=== PATIENT | male | born 1945 | race Caucasian/White ===

== ENCOUNTER → 2018-05-02 | Outpatient (REF) | payer OTHER ==
[2018-05-02 13:48] LABS: APPEARANCE, URINE MANUAL CLEAR (CLEAR); COLOR, URINE MANUAL YELLOW (YELLOW)
[2018-05-02 13:49] LABS: BILIRUBIN, URINE MANUAL NEGATIVE (NEGATIVE); BLOOD URINE MANUAL NEGATIVE (NEGATIVE); GLUCOSE, URINE (UA) MANUAL NEGATIVE (NEGATIVE); KETONE, URINE MANUAL NEGATIVE (NEGATIVE); LEUKOCYTE ESTERASE, URINE MAN POSITIVE (NEGATIVE); NITRITE, URINE MANUAL NEGATIVE (NEGATIVE); PROTEIN, URINE MANUAL NEGATIVE (NEGATIVE); UROBILINOGEN, URINE MANUAL NORMAL (NORMAL)
[2018-05-02 13:58] LABS: BACTERIA, URINE MOD AMOUNT; HYALINE CAST, URINE NONE SEEN /lpf (0-1); RBC, URINE NONE SEEN /hpf (0-3); SQUAMOUS EPITHELIAL CELL URINE NONE SEEN /hpf (SMALL AMT)
== END ==
LOC: M SMT 12:54
PROVIDERS: ATTEND Nurse Practitioner Family
DX: R35.0 Frequency of micturition (principal); R97.20 Elevated prostate specific antigen [PSA]; R31.0 Gross hematuria
CPT/HCPCS: 36415; 51798; 80048; 81000; 84154; 87088; 87186; 88108; G0463

== ENCOUNTER → 2018-05-02 | Outpatient (CLI) | payer OTHER ==
[2018-05-02 12:01] LABS: BLOOD UREA NITROGEN 22 MG/DL (7-18); CALCIUM LEVEL 8.9 MG/DL (8.8-10.2); CARBON DIOXIDE LEVEL 29 MEQ/L (21-32); CHLORIDE LEVEL 108 MEQ/L (98-107); CREATININE FOR GFR 1.23 MG/DL (0.70-1.30); GLOMERULAR FILTRATION RATE > 60.0 (>42); GLUCOSE, FASTING 123 MG/DL (70-100); POTASSIUM SERUM 4.7 MEQ/L (3.5-5.1); SODIUM LEVEL 142 MEQ/L (136-145)
== END ==
LOC: M SMT 10:09
PROVIDERS: ATTEND Nurse Practitioner Family
DX: R97.20 Elevated prostate specific antigen [PSA] (principal); R31.0 Gross hematuria

== ENCOUNTER → 2019-12-03 | Outpatient (CLI) | payer OTHER ==
--- NOTE | 2019-12-04 10:04 | ECWPNPC ---
PATIENT NAME: RICCO STACY : 1945 GENDER: MALE VISIT DATE: 12/03/2019 DISCHARGE DATE: 12/03/19 0944 VISIT LOCKED DATE TIME: PHYSICIAN: CLIFF BARNES RESOURCE: CLIFF BARNES REASON FOR APPOINTMENT 1. LOW BACK/LEFT KNEE- WILL ACCOMPANY SHE WILLL HAVE TO ANSWER QUESTIONS FOR HIM. HISTORY OF PRESENT ILLNESS DEPRESSION SCREENING: PHQ-2 (2015 EDITION) LITTLE INTEREST OR PLEASURE IN DOING THINGS?NOT AT ALL FEELING DOWN, DEPRESSED, OR HOPELESS?NOT AT ALL TOTAL SCORE0 74-YEAR-OLD MALE IN FOR INITIAL PAIN CONSULT. PATIENT HAS PAIN LOCATED IN HIS LOW BACK AND LEFT KNEE. WHEN ASKED PATIENT ADMITS THAT HE FEELS HIS LOW BACK PAIN IS RELATED TO HIM COMPNESATING FOR HIS LEFT KNEE. PATIENT HAS HAD LEFT KNEE PAIN SINCE 1965 WHEN HE WAS IN THE AND INJURED HIS KNEE THERE. IN 1966 PATIENT HAD SURGERY ON THE LEFT KNEE AND PAIN HAS CONTINUED SINCE THAT TIME. HE WAS RECEIVING CORTISONE INJECTIONS IN HIS KNEE HOWEVER ORTHOPEDICS REFERRED HIM TO US THEY ARE NOT ACCEPTING HIS INSURANCE ANYMORE. HE RATES HIS PAIN CURRENTLY AT A 9 OUT OF 10 AND DESCRIBES IT ACHING AND TENDER. GENERAL: - - -. FALL RISK SCREENING: SCREENING :NO FALLS REPORTED IN THE LAST YEAR PAIN SCREENING: PATIENT HAS A COMPLAINT OF ACUTE OR CHRONIC PAIN :YES LOCATION OF PAIN:LOW BACK, KNEES LEFT KNEE INTENSITY OF PAIN (SCALE OF 1 TO 10):9 WHAT DOES YOUR PAIN FEEL LIKE:ACHING, TENDER DURATION:CONSTANT, AWAKENS FROM SLEEP THE PAIN KEEPS THE PATIENT AWAKE A LOT. PAIN IS INCREASED BY:ACTIVITIES, PROLONGED STANDING PAIN IS DECREASED BY:OTHERS PATIENT USES ICE AND A BIOWAVE MACHINE THAT TAKES THE EDGE OFF THE PAIN. NURSING NOTE: - - -. PAIN CENTER INTAKE QUESTIONS: DO YOU HAVE A HISTORY OF MRSA? :NO DO YOU TAKE A BLOOD THINNERS? :NO DO YOU HAVE ANY BLEEDING DISORDERS? :YES WHEN A TOOTH IS PULLED, SUTURES NEED TO BE PLACED TO STOP THE BLEEDING. ANY NEW NUMBNESS OR WEAKNESS IN YOUR LEGS OR ARMS? :YES BILAT LEG WEAKNESS AND PAIN ANY PACEMAKER,DEFIBRILLATOR, OR DORSAL COLUMN STIMULATOR? :NO DO YOU HAVE ANY RASHES OR OPEN SORES? :NO ARE YOU ALLERGIC TO IV DYE? :NO ARE YOU DIABETIC? :NO ANY NEW PROBLEMS WITH YOUR MEDICATIONS? :NO HAVE YOU RECEIVED A VACCINE IN THE PAST 30 DAYS? :YES IF SO WHAT VACCINE AND WHEN? FLU VACCINE 3 WEEKS AGO DO YOU PLAN TO RECEIVE A VACCINE IN THE NEXT 21 DAYS? :NO DO YOU NEED ANY PRESCRIPTION? :NO DO YOU TAKE ANY IMMUNOSUPPRESSIVE MEDICATIONS? :NO IS THERE A CHANCE YOU COULD BE ? :NO ARE YOU BREAST FEEDING? :NO CURRENT MEDICATIONS TAKING DICLOFENAC SODIUM 75 MG TABLET DELAYED RELEASE 1 TABLET WITH FOOD OR MILK ORALLY BID TAKING ACETAMINOPHEN 500 MG CAPSULE 1 CAPSULE NEEDED ORALLY EVERY 6 HRS TAKING ROSUVASTATIN CALCIUM 40 MG TABLET 1 TABLET ORALLY ONCE A DAY TAKING METOPROLOL SUCCINATE 50 MG CAPSULE ER 24 HOUR SPRINKLE 1 CAPSULE ORALLY BID TAKING TAMSULOSIN HCL 0.4 MG CAPSULE 1 CAPSULE ORALLY ONCE A DAY TAKING LOSARTAN POTASSIUM 25 MG TABLET 1 TABLET ORALLY ONCE A DAY NOT-TAKING METOPROLOL TARTRATE 50 MG TABLET 1 TABLET WITH FOOD ORALLY TWICE A DAY NOT-TAKING CRESTOR 40 MG TABLET 1 TABLET ORALLY ONCE A DAY NOT-TAKING CIPROFLOXACIN HCL 500 MG TABLET 1 TABLET ORALLY EVERY 12 HRS NOT-TAKING FLOMAX 0.4 MG CAPSULE 1 CAPSULE ORALLY ONCE A DAY NOT-TAKING RAMIPRIL 10 MG TABLET ORALLY DAILY MEDICATION LIST REVIEWED AND RECONCILED WITH THE PATIENT PAST MEDICAL HISTORY HTN HYPERLIPIDEMIA ELEVATED PSA URINARY FREQUENCY NOCTURIA ALLERGIES PENICILLIN (FOR ALLERGIES USE ONLY): UNSURE - ALLERGY SURGICAL HISTORY LEFT KNEE 1966 FAMILY HISTORY FATHER: MOTHER: , HTN, EMPHYSEMA, COPD 1 SON(S) , 1 DAUGHTER(S) - HEALTHY. DENIES FAMILY HISTORY OF UROLOGICAL DX. SOCIAL HISTORY GENERAL: TOBACCO USE ARE YOU A:FORMER SMOKER SMOKED 2 PPD STARTED SMOKING 13YRS OLD AND QUIT 1980S. HOW LONG HAS IT BEEN SINCE YOU LAST SMOKED?> 10 YEARS LATEX QUESTIONNAIRE LATEX ALLERGY : HAVE YOU EVER DEVELOPED ANY TYPE OF REACTION AFTER HANDLING LATEX PRODUCTS SUCH RUBBER GLOVES, CONDOMS, DIAPHRAGMS, BALLOONS, SOCKS, OR UNDERWEAR?NO LATEX ALLERGY : HAVE YOU EVER DEVELOPED ANY TYPE OF REACTION DURING OR AFTER DENTAL APPOINTMENT, VAGINAL/RECTAL EXAMINATION, SURGICAL PROCEDURE, OR ANY OTHER EXPOSURE?NO LATEX RISK : HAVE YOU EVER HAD ANY DIFFICULTY BREATHING OR HIVES AFTER EATING OR HANDLING ANY FRUITS, OR VEGETABLES; SUCH KIWI, BANANAS, STONE FRUITS, OR CHESTNUTSNO LATEX RISK : DO YOU HAVE A PREVIOUS PERSONAL HISTORY OF MORE THAN NINE SURGERIES, SPINA BIFIDA, OR REPEATED CATHERIZATIONS? NO LATEX RISK : ARE YOU FREQUENTLY EXPOSED TO LATEX PRODUCTS IN YOUR OCCUPATION?NO DATE ASKED : 12/03/2019 ALCOHOL SCREENING DID YOU HAVE A DRINK CONTAINING ALCOHOL IN THE PAST YEAR?YES HOW OFTEN DID YOU HAVE A DRINK CONTAINING ALCOHOL IN THE PAST YEAR?MONTHLY OR LESS (1 POINT) HOW MANY DRINKS DID YOU HAVE ON A TYPICAL DAY WHEN YOU WERE DRINKING IN THE PAST YEAR?1 OR 2 (0 POINTS) HOW OFTEN DID YOU HAVE SIX OR MORE DRINKS ON ONE OCCASION IN THE PAST YEAR?NEVER (0 POINTS) POINTS1 INTERPRETATIONNEGATIVE RECREATIONAL DRUG USE DRUG USE?NO CAFFEINE CAFFEINE USE?YES COFFEE = 1 CUP PER DAY SODA = OCCASIONAL SEXUAL HX HAD SEX IN THE LAST 12 MONTHS (VAGINAL, ORAL, OR ANAL)?NO HAVE YOU EVER HAD AN STD?NO ALEVISM [id number] PROTESTANT NO YAZDANISM BELIEFS THAT WOULD IMPACT HEALTH CARE. LANGUAGE LANGUAGES SPOKEN:ROMANSH EDUCATION LEVEL OF EDUCATION: 10TH GRADE LEARNING BARRIERS / SPECIAL NEEDS BARRIERS TO LEARNING?NO HEARING IMPAIRED?NO VISION IMPAIRED?YES :CORRECTIVE LENSES READINESS TO LEARN?YES LEARNING PREFERENCES?NO DOMESTIC VIOLENCE DO YOU FEEL SAFE IN YOUR ENVIRONMENT?YES MARITAL STATUS: . PAIN CLINIC PFS, CLERGY, PUBLIC HEALTH REFERRALS HAS THE PATIENT BEEN EDUCATED REGARDING HIS/HER PLAN OF CARE?YES HAS THE PATIENT BEEN EDUCATED REGARDING PAIN, THE RISK FOR PAIN, THE IMPORTANCE OF EFFECTIVE PAIN MANAGEMENT, AND THE PAIN ASSESSMENT PROCESS?YES ADVANCE DIRECTIVE ADVANCE DIRECTIVE DISCUSSED WITH PATIENT:YES DECLINED PRE-SCREENING CALL DONE 04/22/19 EM. HOSPITALIZATION/MAJOR DIAGNOSTIC PROCEDURE SX RELATED CHEST PAINS 1987 REVIEW OF SYSTEMS CONSTITUTIONAL: ANY RECENT FEVER NO . CHILLS NO . WEIGHT CHANGE OF UNKNOWN REASONS NO . MUSCULOSKELETAL: ANY UNUSUAL JOINT PAIN OR SWELLING NOT MENTIONED NO . SYSTEMIC LUPUS NO . ANY NEUROMUSCULAR DISORDER NOT MENTIONED NO . LYME DISEASE NO . GASTROENTEROLOGY: ANY NEW CHANGE IN BOWEL CONTROL? NO . HISTORY OF LIVER DISORDER NOT MENTIONED NO . HISTORY OF UNUSUAL ABDOMINAL PAIN OR CRAMPING NOT MENTIONED NO . NO CONSTIPATION. GENITOURINARY: ANY NEW CHANGE IN BLADDER CONTROL? NO . ANY RENAL/KIDNEY CONDITON NOT MENTIONED NO . NEUROLOGY: HISTORY OF TBI NOT MENTIONED NO . OTHER NEW NUMBNESS OR PAIN PATTERNS NOT MENTIONED NO . NEW ONSET DIZZINESS OR NEUROLOGICAL CHANGES NOT MENTIONED NO . HISTORY OF SEVERE HEADACHES NOT MENTIONED NO . HISTORY OF STROKE OR NEUROLOGICAL DISORDER NOT MENTIONED NO . CARDIOLOGY: HEART SURGERY NO . CONGESTIVE HEART FAILURE/FLUID OVERLOAD NOT MENTIONED NO . HISTORY OF CHEST PAIN,IRREGULAR HEART BEAT NOT MENTIONED NO . RESPIRATORY: SHORTNESS OF BREATH ON EXERTION, WHEEZES, UNUSUAL COUGH NOT MENTIONED NO . ENDOCRINOLOGY: ADRENAL GLAND OR THYROID DISORDERS NOT MENTIONED NO . UNUSUAL URINATION, DIZZINESS OR LETHARGY NOT MENTIONED NO . VITAL SIGNS WT 215.8 LBS, HT 70 IN, BMI 30.96 INDEX, BP 161/72 MM HG, HR 41 /MIN, RR 12 /MIN, TEMP 99.0 F, OXYGEN SAT % 99, REVIEWED BY: HOANG GREY [facility]. EXAMINATION GENERAL EXAMINATION: GENERALNO ACUTE DISTRESS, WELL NOURISHED AND HYDRATED. PSYCHAPPROPRIATE MOOD AND AFFECT . LUNGS:CLEAR TO AUSCULTATION BILATERALLY, NO WHEEZES, RHONCHI, RALES. HEART:NO MURMURS, REGULAR RATE AND RHYTHM. BACK:DENIES POINT TENDERNESS ALONG LUMBAR SPINE, SURROUNDING SKIN SHOWS NO ERYTHEMA, ECCHYMOSIS, INCREASED WARMTH, AND/OR SKIN ERUPTIONS NOTED. POSITIVE MODIFIED SLR ON THE LEFT SIDE. . MUSCULOSKELETAL:NOTABLE WEAKNESS OF THE LEFT LOWER EXTREMITY, RIGHT LOWER EXTREMITY WITHIN NORMAL LIMITS. PATIENT ENDORSES TENDERNESS TO THE MEDIAL ASPECT OF THE LEFT KNEE . ASSESSMENTS PAIN IN LEFT KNEE - M25.562 (PRIMARY) LOW BACK PAIN - M54.5 TREATMENT PAIN IN LEFT KNEE MRI : KNEE, [id number] CLINICAL NOTES: 74-YEAR-OLD MALE IN FOR INITIAL PAIN CONSULT. GIVEN PRESENTING SYMPTOMS AND RESULTS OF PHYSICAL EXAMINATION RECOMMENDED MRI OF THE LUMBAR SPINE AND LEFT KNEE WITH FOLLOW-UP THEREAFTER. FURTHER RECOMMENDED, STARTING HYDROCODONE 5/325 MG 1 TABLET DAILY NEEDED FOR PAIN. PATIENT HAS EXPRESSED UNDERSTANDING OF AND WAS IN AGREEMENT WITH TREATMENT PLAN. GIVEN TIME TO ASK QUESTIONS AND EXPRESS CONCERNS. LOW BACK PAIN [facility] MRI LUMBAR W/O CONTRAST (CPT [id number] OTHERS CLINICAL NOTES: 11/29/19 @ 1200 LACHO RAYMUNDO GOLF COURSE STARTER. PREVENTIVE MEDICINE PAIN CLINIC TEACHING: THE PATIENT HAS BEEN EDUCATED REGARDING PAIN, THE RISK FOR PAIN, THE IMPORTANCE OF EFFECTIVE PAIN MANAGEMENT, AND THE PAIN ASSESSMENT PROCESS. : DISCUSSED CARE PLAN WITH PATIENT, PATIENT VERBALIZES UNDERSTANDING. PROCEDURE CODES FA211 ESTABILISHED PATIENT [facility] CHARGE DISPOSITION & COMMUNICATION FOLLOW UP AFTER IMAGING (REASON: MRI LEFT KNEE AND LUMBAR SPINE) ELECTRONICALLY SIGNED BY JOCELYN PEDROZA ON 12/04/2019 AT 08:55 AM EDT DISCLAIMER : THIS IS A VISIT SUMMARY EXTRACTED FROM THE [employer] CHART. IT IS NOT A COPY OF THE [employer] PROGRESS NOTE. MTDD
== END ==
LOC: M PAIN 08:30
PROVIDERS: ATTEND Family Medicine
DX: M25.562 Pain in left knee (principal); M54.5 Low back pain; I10 Essential (primary) hypertension; Z87.891 Personal history of nicotine dependence; Z88.0 Allergy status to penicillin; Z79.899 Other long term (current) drug therapy

== ENCOUNTER → 2020-02-04 | Outpatient (CLI) | payer OTHER ==
--- NOTE | 2020-02-06 12:22 | ECHO ---
DATE OF PROCEDURE: 02/04/2020 Age: 74 Gender: Male Height: 70 inches Weight: 212 pounds Body surface area: 2.13 m2 PATIENT LOCATION: Outpatient. REFERRING PHYSICIAN: Vinh Dean M.D. INDICATION: Heart failure. MEASUREMENTS: 2D Measurements: RV 4.0 cm LV 5.2 cm Septum 1.2 cm Posterior wall 1.2 cm Aortic Root 3.5 cm LA 4.5 cm LVEF 75% Doppler Measurements: AV 1.21 m/s LVOT 1.07 m/s LVOT diameter 2.0 cm MV-E 124, A 90, E/A ratio 1.4 Early mitral deceleration time 238 msec E prime medial 7.8, A prime medial 5.5, E prime lateral 7.5 Average E/E prime ratio 16.2/PCWP - 22 mmHg PV 1.2 m/s Pulmonary artery acceleration time 127 msec RVSP 45 mmHg IVC 1.9 cm COMMENTS: Sinus bradycardia without interventricular conduction disturbance. M-mode and two-dimensional echocardiography was performed with pulse, continuous wave, color flow, and tissue Doppler studies. Borderline symmetrical left ventricular hypertrophy with hyperkinetic wall motion. Mildly dilated left atrium with grade 2 LV diastolic dysfunction and estimated mean left atrial pressure that was elevated. Right ventricle upper limits of normal in size with normal wall motion and Doppler evidence of moderate pulmonary hypertension. Right atrium was also upper limits of normal with normal IVC size and collapse against an elevated central venous pressure at this time. Normal aortic dimensions. Mild aortic valvular sclerosis without stenosis and only trace insufficiency. Moderately severe mitral annular calcification with normal leaflet excursion and no posterior systolic buckling and only very mild mitral insufficiency. Normal appearing tricuspid valve with mild insufficiency. No apparent intracardiac mass or pericardial effusion. MTDD
== END ==
LOC: M CARPUL 10:13
PROVIDERS: ATTEND Internal Medicine
DX: I50.9 Heart failure, unspecified (principal)

== ENCOUNTER → 2022-06-09 | Outpatient (CLI) | payer OTHER | LOC: M PLALAB 12:12 | PROVIDERS: ATTEND Physician Assistant | DX: R97.20 Elevated prostate specific antigen [PSA] (principal) ==

== ENCOUNTER 2023-08-04 11:50 | Inpatient (IN) | payer OTHER, MEDICARE ==
[~2023-08-04] VITALS: Ht 177.8 cm; Wt 124.9 kg
[2023-08-04] MEDS ORDERED: ROSU40TA63 PO (12:06)
[2023-08-04] MEDS ORDERED: LOSA25TA13 PO (12:06)
[2023-08-04] MEDS ORDERED: OMEP40CA4 PO (12:06)
[2023-08-04] MEDS ORDERED: DICL75TA PO (12:06)
[2023-08-04] MEDS ORDERED: FLOM0.4C39 PO (12:06)
[2023-08-04] MEDS ORDERED: THERTAB52 PO (12:06)
[2023-08-04] MEDS ORDERED: METO1TAB7 PO (12:15)
[2023-08-04 12:54] LABS: BASO % 0.2 % (0.0-1.0); EOS # 0.6 10^3/uL (0.0-0.5); EOS % 4.1 % (0.0-3.0); HEMOGLOBIN 14.5 g/dl (13.5-17.5); LYMPH # 1.7 10^3/uL (1.5-5.0); LYMPH % 12.4 % (24.0-44.0); MEAN CORPUSCULAR HEMOGLOBIN 31.3 pg (27.0-33.0); MEAN CORPUSCULAR HGB CONC 34.5 g/dl (32.0-36.5); MEAN CORPUSCULAR VOLUME 90.5 fl (80.0-96.0); MONO % 6.8 % (2.0-8.0); NEUTROPHILS # 10.3 10^3/uL (1.5-8.5); NEUTROPHILS % 73.9 % (36.0-66.0); PLATELET COUNT, AUTOMATED 221 10^3/uL (150-450); RED BLOOD COUNT 4.64 10^6/uL (4.30-6.10); WHITE BLOOD COUNT 13.9 10^3/uL (4.0-10.0)
[2023-08-04 13:01] LABS: ALBUMIN 3.9 G/DL (3.2-5.2); ALKALINE PHOSPHATASE 82 U/L (46-116); ALT/SGPT 64 U/L (7.0-40); AST/SGOT 22 U/L (<34); BILIRUBIN,TOTAL 1.1 MG/DL (0.3-1.2); BLOOD UREA NITROGEN 43 MG/DL (9-23); CALCIUM LEVEL 8.3 MG/DL (8.3-10.6); CARBON DIOXIDE LEVEL 24 MMOL/L (20-31); CHLORIDE LEVEL 107 MMOL/L (98-107); CREATININE FOR GFR 1.81 MG/DL (0.70-1.30); GLUCOSE, FASTING 114 MG/DL (74-106); POTASSIUM SERUM 5.2 MMOL/L (3.5-5.1); SODIUM LEVEL 137 MMOL/L (136-145); TOTAL PROTEIN 6.6 G/DL (5.7-8.2)
[2023-08-04] MEDS: METOPROLOL 5 MG/5 ML VIAL IV SCH (13:21)
[2023-08-04 13:24] LABS: CK-MB VALUE MASS < 1.0 NG/ML (<3.6); MAGNESIUM LEVEL 2.6 MG/DL (1.8-2.4); PHOSPHORUS LEVEL 3.9 MG/DL (2.4-5.1)
[2023-08-04 13:27] LABS: THYROID STIMULATING HORMONE 4.102 uIU/ML (0.55-4.78)
[2023-08-04 13:29] LABS: CPK CREATINE PHOSPHOKINASE 33 U/L (46-171); MB/CK RELATIVE INDEX 3.03 (< OR =4)
[2023-08-04 14:30] LABS: CK-MB VALUE MASS < 1.0 NG/ML (<3.6); CPK CREATINE PHOSPHOKINASE 30 U/L (46-171); MB/CK RELATIVE INDEX 3.33 (< OR =4)
[2023-08-04] MEDS: diltiaZEM 125 MG in NS 100 ML IV SCH ×2 (14:30→14:31)
[2023-08-04] MEDS ORDERED: METOPROLOL 5 MG/5 ML VIAL IV PRN (15:30)
[2023-08-04 16:11] LABS: ALBUMIN 3.8 G/DL (3.2-5.2); ALKALINE PHOSPHATASE 75 U/L (46-116); ALT/SGPT 58 U/L (7.0-40); AST/SGOT 20 U/L (<34); BLOOD UREA NITROGEN 44 MG/DL (9-23); CALCIUM LEVEL 8.1 MG/DL (8.3-10.6); CARBON DIOXIDE LEVEL 25 MMOL/L (20-31); CHLORIDE LEVEL 106 MMOL/L (98-107); CREATININE FOR GFR 1.82 MG/DL (0.70-1.30); GLOMERULAR FILTRATION RATE 38.8 (>42); GLUCOSE, FASTING 103 MG/DL (74-106); POTASSIUM SERUM 5.7 MMOL/L (3.5-5.1); SODIUM LEVEL 137 MMOL/L (136-145); TOTAL PROTEIN 6.1 G/DL (5.7-8.2)
[2023-08-04 16:14] LABS: ABG BASE EXCESS -3.8 (-2.0-2.0); ABG HCO3 19.7 MMOL/L (22.0-26.0); ABG O2 SATURATION 98.7 % (95.0-99.0); ABG PARTIAL PRESSURE CO2 31.7 mmHg (35.0-45.0); ABG STANDARD HCO3 21.4 MMOL/L. (22.0-26.0); ABG TOTAL CO2 20.7 MMOL/L (23.0-31.0); ABG pH (ARTERIAL) 7.412 UNITS (7.350-7.450)
[2023-08-04] MEDS ORDERED: CALCIUM CHLORIDE 10% 1 GM in D5W 100 ML IV STA (16:16)
[2023-08-04] MEDS ORDERED: GLUCOSE 4 GM CHEW PO PRN (16:20)
[2023-08-04] MEDS ORDERED: GLUCAGON INJ 1MG VIAL SC PRN (16:20)
[2023-08-04] MEDS ORDERED: DEXTROSE 50% 50ML SYRINGE IV PRN (16:20)
[2023-08-04] MEDS ORDERED: CO Q200C10 PO (16:35)
[2023-08-04] MEDS ORDERED: CYCL-707 PO (16:35)
[2023-08-04] MEDS ORDERED: LOSA100T46 PO (16:35)
[2023-08-04] MEDS ORDERED: METO1TAB33 PO (16:35)
[2023-08-04] MEDS ORDERED: FAMO40TA3 PO (16:35)
[2023-08-04] MEDS ORDERED: MULT-90 PO (16:37)
[2023-08-04] MEDS ORDERED: HOME MED LIST COMPLETE! XX SCH (16:40)
[2023-08-04 17:13] VITALS: BP 132/72; O2SAT 98
[2023-08-04] MEDS: METOPROLOL TART 50 MG TAB PO SCH (17:45)
[2023-08-04] MEDS: APIXABAN 5 MG TAB (ELIQUIS) PO SCH (17:46)
[2023-08-04] MEDS: DEXTROSE 50% 50ML SYRINGE IV STA (17:48)
[2023-08-04] MEDS: HumuLIN R (REGULAR) INSULIN (NovoLIN R) **100U/ML** PER UNIT IV STA (17:49)
[2023-08-04] MEDS: CALCIUM GLUCONATE 1,000 MG in D5W MINI-BAG PLUS 100 ML IV STA ×2 (17:53→17:57)
[2023-08-04 18:01] VITALS: BP 139/80; TEMP 97.3; O2SAT 95
[2023-08-04] MEDS: SODIUM BICARBONATE 150 MEQ in D5W 1,000 ML IV SCH (19:47)
[2023-08-04 20:00] VITALS: BP 126/74; TEMP 97.6; O2SAT 97
[2023-08-05] VITALS: BP 117/76; TEMP 97.8; O2SAT 99
[2023-08-05 00:44] LABS: BLOOD UREA NITROGEN 37 MG/DL (9-23); CALCIUM LEVEL 9.1 MG/DL (8.3-10.6); CARBON DIOXIDE LEVEL 29 MMOL/L (20-31); CHLORIDE LEVEL 103 MMOL/L (98-107); CK-MB VALUE MASS < 1.0 NG/ML (<3.6); CREATININE FOR GFR 1.47 MG/DL (0.70-1.30); GLOMERULAR FILTRATION RATE 49.6 (>42); GLUCOSE, FASTING 124 MG/DL (74-106); SODIUM LEVEL 137 MMOL/L (136-145)
[2023-08-05 00:45] LABS: CPK CREATINE PHOSPHOKINASE 66 U/L (46-171); MB/CK RELATIVE INDEX 1.51 (< OR =4)
[2023-08-05 04:00] VITALS: BP 179/91; TEMP 97.5; O2SAT 98
[2023-08-05 05:39] LABS: BASO % 0.1 % (0.0-1.0); EOS # 0.3 10^3/uL (0.0-0.5); EOS % 2.4 % (0.0-3.0); HEMATOCRIT 39.6 % (42.0-52.0); HEMOGLOBIN 13.5 g/dl (13.5-17.5); LYMPH # 1.7 10^3/uL (1.5-5.0); LYMPH % 12.4 % (24.0-44.0); MEAN CORPUSCULAR HEMOGLOBIN 30.7 pg (27.0-33.0); MEAN CORPUSCULAR HGB CONC 34.1 g/dl (32.0-36.5); MONO # 1.1 10^3/uL (0.0-0.8); MONO % 7.6 % (2.0-8.0); NEUTROPHILS # 10.5 10^3/uL (1.5-8.5); NEUTROPHILS % 75.5 % (36.0-66.0); PLATELET COUNT, AUTOMATED 188 10^3/uL (150-450); WHITE BLOOD COUNT 13.9 10^3/uL (4.0-10.0)
[2023-08-05 06:00] LABS: CK-MB VALUE MASS < 1.0 NG/ML (<3.6)
[2023-08-05 06:03] LABS: CPK CREATINE PHOSPHOKINASE 72 U/L (46-171); MB/CK RELATIVE INDEX 1.38 (< OR =4)
[2023-08-05 08:00] VITALS: BP 201/86; TEMP 98.1; O2SAT 98
[2023-08-05] MEDS: TAMSULOSIN 0.4 MG CAP PO STA (08:29)
[2023-08-05 08:30] VITALS: BP 171/75
[2023-08-05] MEDS: LOSARTAN 50MG TABLET PO STA (08:30)
[2023-08-05 08:32] VITALS: BP 171/75
[2023-08-05] MEDS ORDERED: LOPR1TAB6 PO (08:36)
[2023-08-05] MEDS ORDERED: ELIQ5TAB PO (08:36)
[2023-08-05] MEDS ORDERED: OMEPRAZOLE 20MG CAP PO SCH (21:00)
== END 2023-08-05 10:25 | disposition home or self-care (01) | DRG 310 ==
LOC: M ED 11:50 → M ED INP 15:29 → M ICU 17:01
PROVIDERS: ADMIT Internal Medicine Critical Care Medicine; ATTEND Internal Medicine Critical Care Medicine
PROC: B246ZZZ Ultrasonography of Right and Left Heart (ICD-10-PCS; principal; 2023-08-04)
DX: I48.91 Unspecified atrial fibrillation (principal); E78.5 Hyperlipidemia, unspecified; I12.9 Hypertensive chronic kidney disease with stage 1 through stage 4 chronic kidney disease, or unspecified chronic kidney disease; N40.1 Benign prostatic hyperplasia with lower urinary tract symptoms; K21.9 Gastro-esophageal reflux disease without esophagitis; N18.9 Chronic kidney disease, unspecified; M19.90 Unspecified osteoarthritis, unspecified site; Z87.891 Personal history of nicotine dependence; Z79.899 Other long term (current) drug therapy; Z88.0 Allergy status to penicillin